=== PATIENT | female | born 1955 | race Caucasian/White ===

== ENCOUNTER → 2016-05-02 | Outpatient (CLI) | payer OTHER ==
[~2016-05-02] MED LIST: OMNIPAQUE 350 MG/ML, 150 ML BOTTLE ONE
== END | disposition home or self-care (01) ==
LOC: RAD 06:52
PROVIDERS: ATTEND Urology
DX: R31.29 Other microscopic hematuria (principal)
CPT/HCPCS: 74178; Q9967

== ENCOUNTER → 2017-07-19 | Outpatient (CLI) | payer OTHER ==
[~2017-07-19] MED LIST changes: +ACTIFED PO; +ALPR0.25 PO; +CEVI30CA4 PO; +CODE1CAP23 PO; +LAMO200T3 PO; +OMEP1CAP14 PO; -OMNIPAQUE 350 MG/ML, 150 ML BOTTLE ONE; +VENL150C PO
== END ==
LOC: STAR 12:33
PROVIDERS: ATTEND Orthopaedic Surgery
DX: Z02.9 Encounter for administrative examinations, unspecified (principal)

== ENCOUNTER 2017-07-23 05:18 | Day surgery (SDC) | payer OTHER ==
[2017-07-19 13:52] VITALS: BP 126/83
[~2017-07-23] VITALS: Ht 175.3 cm; Wt 101.6 kg
[2017-07-23] MEDS ORDERED: LACTATED RINGERS 1,000 ML IV SCH (05:59)
[2017-07-23] MEDS ORDERED: LIDOCAINE-MPF 1%, 2ML INFIL ONE (06:00)
[2017-07-23 06:03] VITALS: BP 126/83
[2017-07-23] MEDS ORDERED: EPINEPHRINE 1 MG/ML, 1ML ONE (06:39)
[2017-07-23] MEDS ORDERED: BUPIVACAINE 0.25% ONE (06:39)
[2017-07-23] MEDS ORDERED: FENTANYL PF 100 MCG/2ML ONE ×2 (06:52→08:08)
[2017-07-23] MEDS ORDERED: MIDAZOLAM 1 MG/ML, 2ML ONE (06:52)
[2017-07-23] MEDS ORDERED: KETOROLAC 30 MG/1 ML ONE (07:10)
[2017-07-23] MEDS ORDERED: LABETALOL 5MG/ML 40ML VIAL ONE (07:10)
[2017-07-23] MEDS ORDERED: ONDANSETRON 2MG/ML, 2ML ONE (07:22)
[2017-07-23] MEDS ORDERED: PROPOFOL 10 MG/ML, 20ML ONE (07:22)
[2017-07-23] MEDS ORDERED: DEXAMETHASONE 4 MG/ML, 1ML ONE (07:22)
[2017-07-23] MEDS ORDERED: CEFAZOLIN 1,000 MG ONE (07:22)
[2017-07-23] MEDS ORDERED: ONDANSETRON 2MG/ML, 2ML IVPush PRN (07:30)
[2017-07-23] MEDS ORDERED: HYDROcodone/APAP 5/325 TABLET PO PRN (07:30)
[2017-07-23] MEDS ORDERED: OXYcodone 5 MG/5 ML ORAL.SOL UDC PO PRN (08:00)
[2017-07-23] MEDS ORDERED: HYDROcodone/APAP 7.5-325MG/15ML UDC PO PRN (08:00)
[2017-07-23] MEDS ORDERED: FENTANYL PF 100 MCG/2ML IV PRN (08:00)
[2017-07-23] MEDS ORDERED: MORPHINE SULFATE 4 MG/ML, 1ML IVPush PRN (08:00)
[2017-07-23] MEDS ORDERED: ONDANSETRON ODT 8 MG PO PRN (08:00)
[2017-07-23] MEDS ORDERED: PROMETHAZINE 12.5 MG SUPP PR PRN (08:00)
[2017-07-23] MEDS ORDERED: LORazepam 2 MG/ML, 1ML IVPush PRN (08:00)
[2017-07-23] MEDS ORDERED: ACETAMINOPHEN 325 MG TABLET PO PRN (08:00)
[2017-07-23] MEDS ORDERED: HYDROcodone/APAP 7.5-325MG/15ML UDC ONE (08:09)
== END 2017-07-23 09:45 ==
LOC: OUT 05:18
PROVIDERS: ATTEND Orthopaedic Surgery
DX: S83.271A Complex tear of lateral meniscus, current injury, right knee, initial encounter (principal); S83.231A Complex tear of medial meniscus, current injury, right knee, initial encounter; K21.9 Gastro-esophageal reflux disease without esophagitis; X58.XXXA Exposure to other specified factors, initial encounter; Y93.89 Activity, other specified; Y92.89 Other specified places as the place of occurrence of the external cause; Y99.8 Other external cause status; Z79.82 Long term (current) use of aspirin
CPT/HCPCS: 29880; J0171; J0690; J1100; J1885; J2250; J2405; J2704; J3010; J3490; J7120